=== PATIENT | female | born 1990 | race Caucasian/White ===

== ENCOUNTER 2021-02-24 05:20 | Inpatient (IN) ==
--- NOTE | 2021-02-16 09:24 | Anesthesiology Consultation ---
Date of Service February 16, 2021 Assessment & Plan (1) Encounter for pre-operative examination: COVID screening: Per assessment on 02/16: Travel screen negative, no known COVID- 19 positive contacts or current COVID-19 related symptoms. Surgeon arranging preop COVID testing (scheduled 02/20; [place]). Awaiting results. 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 History Surgery Operation Date: 02/24/21 07:30 Proposed Procedures p Section in LD - Sheila Davis MD, FACOG Height/Weight Height: 5 ft Weight: 75.75 kg Allergies Allergy/AdvReac Type Severity Reaction Status Date / Time No Known Allergies Allergy Verified 02/16/21 08:45 Medications Home Medications Medication Instructions Recorded Confirmed Last Taken prenat.vits,garfield,[id number] 1 tab PO DAILY 07/14/20 02/16/21 01/19/21 Past Medical History Medical History History of COVID-19 10/2020 mild sinus congestion, loss of taste > resolved Past Family History Family History Denies family history of Ovarian cancer Breast cancer Colorectal cancer Past Surgical History Surgical History H/O section [place] teeth extracted Social History Smoking Status: Never smoker Do You Dip or Chew Tobacco: No Hx Alcohol Use: No Hx Substance Use: No substance use type: does not use
--- NOTE | 2021-02-20 13:28 | History & Physical Report ---
Date of Service February 20, 2021 Assessment & Plan (1) Previous delivery affecting , antepartum: (2) Rubella non-immune status, antepartum: (3) Encounter for supervision of normal in multigravida, antepartum: Will admit for planned repeat c/s this saturday. consent reviewed and signed. plan mmr pp. patient and partner aware and deny ?s or concerns. History of Present Illness Chief Complaint: planned c/s Primary Care Provider: Amelia Barnes 30yo with cc of planned c/s after 39wks ega this saturday02/24/21. Patient has pressure symptoms. No regular ctx or leaking or bleeding. FM PNC c/b 1. Prior c/s for breech 2. Rubella non immune, MMR PP PNL Rh pos, R non immune, GBS neg OBH: breech c/s at 39wks. Allergies Allergy/AdvReac Type Severity Reaction Status Date / Time No Known Allergies Allergy Verified 02/20/21 13:07 Home Medications Medication Instructions Recorded Confirmed Type prenat.vits,garfield,[id number]-[id number] 1 tab PO DAILY 07/14/20 02/20/21 History Patient History Medical History History of COVID-19 10/2020 mild sinus congestion, loss of taste > resolved Surgical History H/O section [place] teeth extracted Family History Denies family history of Ovarian cancer Breast cancer Colorectal cancer Social History (Updated 07/14/20 @ 13:45 by Doreen Rebolledo) Smoking Status: Never smoker Second Hand Exposure: No; Hx Alcohol Use: No Hx Substance Use: No Preferred Language: Tongan Communication Ability: Effective 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: No Beliefs That Will Affect Care: None marital status: marital status details: Good (31) [phone] or sister Chantelle Rasmussen [phone] Current Living Situation: Spouse Current Living Situation Comment: lives with spouse and daughter, 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: 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 Feels Safe at Home: Yes Assistive Devices: None Review of Systems as per Subjective / HPI; no fever Physical Exam Constitutional: WD/WN, vitals as above Respiratory: normal respiratory effort, lungs clear to auscultation Cardiovascular: Rate/Rhythm: regular rate and regular rhythm Gastrointestinal (Abdomen): soft gravid nt FHTs 145 Musculoskeletal: no edema nontender calves Neurologic: grossly normal Psychiatric: A+Ox3, euthymic affect Coding Level of Care Code None Diagnoses Previous delivery affecting , antepartum O34.219 Rubella non-immune status, antepartum O99.891; Z28.3 Encounter for supervision of normal in multigravida, antepartum Z34.80
[2021-02-24] MEDS ORDERED: SODIUM CHLORIDE 0.9% 250 ML IV PRN (05:26)
[2021-02-24] MEDS ORDERED: LACTATED RINGER'S 1,000 ML IV SCH ×3 (05:30→10:33)
[2021-02-24] MEDS ORDERED: ceFAZolin 2,000 MG in SYRINGE 0 ML IV SCH (06:00)
[2021-02-24] MEDS ORDERED: CITRIC ACID/SODIUM CITRATE 15 ML UDC PO SCH (06:00)
[2021-02-24 06:05] LABS: Basophils # (auto) 0.03 K/uL (0-0.2); Basophils % (auto) 0.3 %; Eosinophils # (auto) 0.13 K/uL (0-0.5); Eosinophils % (auto) 1.3 %; Hematocrit (blood only) 34.4 % (37-47); Hemoglobin 11.4 g/dL (12.0-16.0); Immature Granulocytes # (auto) 0.07 K/uL (0.00-0.02); Immature Granulocytes % (auto) 0.7 %; Lymphocytes # (auto) 2.66 K/uL (1.2-3.4); Lymphocytes % (auto) 26.2 %; Mean Corpuscular Hemoglobin 29.2 pg (25-34); Mean Corpuscular Hgb Conc 33.1 g/dL (32-36); Mean Corpuscular Volume 88.2 fL (80-100); Mean Platelet Volume 10.1 fL (7.4-10.4); Monocytes # (auto) 0.93 K/uL (0.11-0.59); Monocytes % (auto) 9.2 %; Neutrophils # (auto) 6.34 K/uL (1.4-6.5); Neutrophils % (auto) 62.3 %; Platelet Count 230 K/uL (130-400); RDW Coefficient of Variation 14.1 % (11.5-14.5); RDW Standard Deviation 45.4 fL (36.4-46.3); White Blood Count 10.16 K/uL (4.8-10.8)
--- NOTE | 2021-02-24 07:21 | History & Physical Bridge Note ---
Date of Service February 24, 2021 History & Physical Bridge Note I have examined the patient, reviewed the History & Physical and in the interval since the performance of the History & Physical I have noted the following changes of clinical significance: no changes noted
[2021-02-24] MEDS ORDERED: MoRPHine SULFATE PF 1 MG/ML 10 ML AMP/VIAL INT SPINAL ONE (07:42)
[2021-02-24] MEDS ORDERED: HYDROmorphone INJ 0.5 MG/0.5 ML SYR IV PRN (07:42)
[2021-02-24] MEDS ORDERED: NALOXONE HCL 0.4 MG/1 ML VIAL/CARP IV PRN (07:42)
[2021-02-24] MEDS ORDERED: MEPERIDINE HCL 25 MG/ML CARP/VIAL IV PRN (07:42)
[2021-02-24] MEDS ORDERED: NALOXONE HCL 0.08 MG in SYRINGE 1.8 ML IV PRN (07:42)
[2021-02-24] MEDS ORDERED: ONDANSETRON INJ 2 MG/ML 2 ML VIAL IV PRN (07:42)
[2021-02-24] MEDS ORDERED: PROMETHAZINE HCL 6.25 MG in SODIUM CHLORIDE 0.9% 50 ML IV PRN (07:42)
[2021-02-24] MEDS ORDERED: MoRPHine SULFATE 2 MG/ML CARP IV PRN (07:42)
[2021-02-24] MEDS ORDERED: NALOXONE HCL 1 MG in SODIUM CHLORIDE 0.9% 1000ML 1,000 ML IV PRN (07:42)
[2021-02-24] MEDS ORDERED: ePHEDrine sulfate 50 MG/ML AMP IV PRN (07:42)
[2021-02-24] MEDS ORDERED: LACTATED RINGER'S 500 ML IV PRN (07:42)
[2021-02-24] MEDS ORDERED: KETOROLAC 30 MG/ML VIAL IV PRN (07:42)
[2021-02-24] MEDS ORDERED: NO NARCOTICS OR SEDATIVES SCH (07:45)
[2021-02-24] MEDS ORDERED: DC INTRASPINAL MORPHINE SCH (07:45)
[2021-02-24] MEDS ORDERED: SODIUM CHLORIDE 0.9% 1000ML 1,000 ML IV SCH (07:45)
[2021-02-24] MEDS ORDERED: fentaNYL citrate 100 MCG/2 ML VIAL ONE (07:48)
[2021-02-24] MEDS ORDERED: MoRPHine SULFATE PF 1 MG/ML 10 ML AMP/VIAL ONE (07:48)
[2021-02-24] MEDS ORDERED: OXYTOCIN 10 UNITS/ML VIAL ONE (08:39)
[2021-02-24] MEDS ORDERED: KETOROLAC 30 MG/ML VIAL ONE (08:39)
[2021-02-24] MEDS ORDERED: ONDANSETRON INJ 2 MG/ML 2 ML VIAL ONE (08:39)
--- NOTE | 2021-02-24 08:39 | Post Operative Brief Note ---
PG Immediate Post Op with CF Date of Surgery February 24, 2021 Pre & Post Diagnosis Operation Date: 02/24/21 07:30 Pre-Op Diagnosis: 39 week iup, prior caesarean section, desires repeat Post-Op Diagnosis: Same as pre-op I identified the patient and participated in the time-out.: Yes Procedure Operation Date: 02/24/21 07:30 Actual Procedures p Repeat Low Transverse Section in LD; Live male child at 0809 (Main OR #3)(Bilateral) - Sheila Davis MD, FACOG Surgeon Sheila Davis MD, FACOG Mechanical Artist Liz Estimated Blood Loss 500 Findings Consistent with Post-Op Diagnosis (viable male apgars 8,9 normal uterus, tubes and ovaries bilaterally) Fluids 1500 Specimens Specimen Description: Placenta-hold Cord blood Drains Martinez Catheter (Inserted after spinal anesthesia; draining clear yellow urine throughout entire procedure.) Anesthesia Type Spinal Complications none Disposition Accompanied Patient To Recovery: No Disposition: L&D
[2021-02-24] MEDS ORDERED: MAGNESIUM HYDROXIDE SUSP 30 ML UDC PO PRN (10:33)
[2021-02-24] MEDS ORDERED: BENZOCAINE 20% AER SPR 82.5 GM CAN EXT PRN (10:33)
[2021-02-24] MEDS ORDERED: SENNA 8.6 MG TAB PO PRN (10:33)
[2021-02-24] MEDS ORDERED: DIPHTHERIA/TETANUS/PERTUSSIS 0.5 ML SYR/VIAL IM ONE (10:33)
[2021-02-24] MEDS ORDERED: HYDROCORTISONE ACETATE 25 MG SUPP PR PRN (10:33)
[2021-02-24] MEDS ORDERED: SUPERCREAM 0.870% 15 GM JAR EXT PRN (10:33)
--- NOTE | 2021-02-24 10:58 | Operative Report ---
PG Post Operative Report Pre & Post Diagnosis Operation Date: 02/24/21 07:30 Pre-Op Diagnosis: 1. 39 week iup 2. Prior section, desires repeat section Post-Op Diagnosis: Same as pre-op I identified the patient and participated in the time-out.: Yes Procedure Operation Date: 02/24/21 07:30 Actual Procedures p Repeat Low Transverse Section Surgeon Sheila Davis MD, FACOG Provider Relations Rep Liz Estimated Blood Loss 500 Findings Consistent with Post-Op Diagnosis (viable male apgars 8,9 normal uterus, tubes and ovaries bilaterally) Fluids 1500 Specimens placenta hold cord blood to lab Drains weaver Anesthesia Type Spinal Complications none Disposition Accompanied Patient To Recovery: No Disposition: L&D Indications 30yo at 39wks with cc of planned section for repeat section. Description of Procedure The patient was taken to the operating room and identified. After adequate anesthesia was obtained, she was placed in the supine position with a leftward tilt on the operating table and prepped and draped in the usual sterile fashion. A weaver catheter had already been placed. The knife was used to create a Pfannensteil skin incision that was carried down to the underlying layer of fascia. The fascia was nicked in the midline and this opening was extended laterally using Paulino scissors. Forrest clamps were placed on the superior and inferior aspect of the fascial incision tenting it upward and the underlying rectus muscles were dissected off the overlying fascia both sharply and bluntly using Paulino scissors. The rectus muscles were bluntly in the midline. The peritoneal cavity was bluntly entered into. This opening was stretched. The bladder blade was placed. The vesicouterine peritoneum was elevated and opened up into and the bladder flap was created digitally and bladder blade was replaced. The knife was used to create a hysterotomy and this opening was stretched. The operators hand was placed through the hysterotomy and the bladder blade was removed. The head was elevated and flexed and with fundal pressure the head was delivered. Body cord was noted. The shoulders and body were rapidly delivered. The cord was clamped and cut and the infant's mouth and nares were bulb suction. The infant was handed off to the awaiting pediatricians. Cord blood was obtained. The placenta was manually expressed. The uterus was exteriorized and cleared of all clots and debris. Dilute IV Pitocin was begun. The uterine tone was improving. The hysterotomy was closed in a running interlocking fashion using 0 Vicryl followed by a second imbricating layer of 0 Vicryl. Bleeding sites at midline of hysterotomy were stitched with interrupted sutures of 2-0 vicryl for excellent hemostasis. The hysterotomy was hemostatic. The pelvis was irrigated. The uterus was returned to the abdomen. The gutters were cleared of all clots and debris. The hysterotomy was reinspected and noted to be hemostatic. The fascia was then closed in running fashion using 0 Vicryl. The subcutaneous fat was copiously irrigated and reapproximated using 2-0 chromic. The skin was closed in a subcuticular fashion using 4-0 Vicryl. At this point the procedure was terminated. The patient was transferred to the recovery room in stable condition. All sponge, lap and needle counts are correct x2. I attest to the content of the Intraoperative Record and any orders documented therein. Any exceptions are noted below. OB Procedure charges OB Charges 63614 C/S
[2021-02-24] MEDS: diphenhydrAMINE 50 MG/ML VIAL IV PRN ×2 (11:02→17:02)
--- NOTE | 2021-02-24 15:16 | Anesthesiology Progress Note ---
Date of Service February 24, 2021 Anesthesia Post Procedure Vital Signs Vital Signs: Temp Pulse Pulse Resp BP BP Pulse Ox 02/24/21 14:44 18 100 02/24/21 13:45 18 100 02/24/21 12:45 18 100 02/24/21 11:45 36.6 C 56 L 18 100/66 100 02/24/21 11:30 18 97 02/24/21 11:14 52 L 98 02/24/21 11:10 36.8 C 50 L 20 103/65 02/24/21 11:09 50 L 100 02/24/21 11:07 55 L 91 02/24/21 11:04 68 100 02/24/21 11:02 51 L 93 02/24/21 11:00 55 L 111/56 L 02/24/21 10:59 58 L 100 02/24/21 10:54 65 100 02/24/21 10:50 62 104/66 02/24/21 10:49 52 L 100 02/24/21 10:44 51 L 100 02/24/21 10:40 55 L 98/59 L 02/24/21 10:39 54 L 100 02/24/21 10:34 51 L 100 02/24/21 10:30 52 L 118/69 02/24/21 10:29 57 L 100 02/24/21 10:24 65 100 02/24/21 10:21 53 L 108/61 02/24/21 10:19 55 L 100 02/24/21 10:14 52 L 100 02/24/21 10:10 51 L 115/56 L 02/24/21 10:09 52 L 100 02/24/21 10:04 62 100 02/24/21 09:59 56 L 100 02/24/21 09:54 56 L 100 02/24/21 09:51 60 119/67 02/24/21 09:49 64 100 02/24/21 09:44 53 L 100 02/24/21 09:40 53 L 107/60 02/24/21 09:39 53 L 100 02/24/21 09:34 60 100 02/24/21 09:30 57 L 99/56 L 02/24/21 09:29 60 100 02/24/21 09:26 56 L 103/69 02/24/21 09:24 53 L 100 02/24/21 09:21 144 H 185/101 H 02/24/21 09:19 55 L 99 02/24/21 09:14 64 100 02/24/21 09:10 64 108/52 L 02/24/21 09:09 57 L 100 02/24/21 09:04 58 L 100 02/24/21 09:01 62 104/59 L 02/24/21 08:59 61 100 02/24/21 08:54 58 L 100 02/24/21 08:50 54 L 94/51 L 02/24/21 08:49 69 100 02/24/21 07:00 36.7 C 80 18 107/62 02/24/21 05:32 36.8 C 82 18 119/71 Transfer of Care Handoff Completed per policy Notes Mental Status: alert / awake / arousable Patient Amnestic to Procedure: No Nausea / Vomiting: adequately controlled Pain: adequately controlled Airway Patency, RR, SpO2: stable & adequate BP & HR: stable & adequate Hydration State: stable & adequate Neuraxial Anesthesia: was administered and sensory block resolved Anesthetic Complications: no major complications apparent and Pt Satisfied with anesthetic care
[2021-02-24] MEDS: OXYTOCIN 20 UNITS in LACTATED RINGER'S 1,000 ML IV SCH (15:17)
[2021-02-24] MEDS: SIMETHICONE 80 MG CHEW PO SCH ×3 (15:18→21:14)
[2021-02-24] MEDS: DOCUSATE SODIUM 100 MG CAP PO SCH (21:14)
[2021-02-24] MEDS ORDERED: LACTATED RINGER'S 1,000 ML IV ONE (22:22)
[2021-02-24 22:40] LABS: Hematocrit (blood only) 31.2 % (37-47); Hemoglobin 10.4 g/dL (12.0-16.0)
[2021-02-24 22:58] LABS: BUN Creatinine Ratio 19.3 (10-20); Calcium 7.9 mg/dl (8.5-10.1); Creatinine Clr Calc Pharmacy 123.8 ml/min; Est GFR (African American) 141.4 ml/min; Potassium 3.7 mmol/L (3.5-5.1)
[2021-02-25] MEDS: OXYTOCIN 20 UNITS in LACTATED RINGER'S 1,000 ML IV SCH (00:22)
[2021-02-25] MEDS ORDERED: PROMETHAZINE HCL 25 MG in SODIUM CHLORIDE 0.9% 50 ML IV PRN (01:42)
[2021-02-25] MEDS ORDERED: KETOROLAC 30 MG/ML VIAL IV PRN (01:42)
[2021-02-25] MEDS ORDERED: ONDANSETRON INJ 2 MG/ML 2 ML VIAL IV PRN (01:42)
[2021-02-25] MEDS ORDERED: diphenhydrAMINE Capsule 25 MG CAP PO PRN (01:42)
[2021-02-25] MEDS ORDERED: diphenhydrAMINE 50 MG/ML VIAL IV PRN (01:42)
[2021-02-25] MEDS: IBUPROFEN 600 MG TAB PO PRN ×5 (03:19→22:03)
[2021-02-25] MEDS: oxyCODONE/ACETAMINOPHEN 5mg/325mg TAB PO PRN ×5 (03:19→22:03)
[2021-02-25 07:10] LABS: Basophils # (auto) 0.03 K/uL (0-0.2); Basophils % (auto) 0.3 %; Eosinophils % (auto) 0.9 %; Hematocrit (blood only) 33.7 % (37-47); Hemoglobin 11.2 g/dL (12.0-16.0); Immature Granulocytes # (auto) 0.04 K/uL (0.00-0.02); Immature Granulocytes % (auto) 0.3 %; Lymphocytes # (auto) 1.83 K/uL (1.2-3.4); Lymphocytes % (auto) 15.8 %; Mean Corpuscular Hemoglobin 29.3 pg (25-34); Mean Corpuscular Hgb Conc 33.2 g/dL (32-36); Mean Corpuscular Volume 88.2 fL (80-100); Mean Platelet Volume 9.9 fL (7.4-10.4); Monocytes # (auto) 0.79 K/uL (0.11-0.59); Monocytes % (auto) 6.8 %; Neutrophils # (auto) 8.77 K/uL (1.4-6.5); Neutrophils % (auto) 75.9 %; Platelet Count 210 K/uL (130-400); Red Blood Count 3.82 M/uL (4.2-5.4); White Blood Count 11.56 K/uL (4.8-10.8)
--- NOTE | 2021-02-25 07:47 | Obstetrical Progress Note ---
Date of Service February 25, 2021 Assessment & Plan (1) Encounter for supervision of normal in multigravida, antepartum: POD#1 doing well. Martinez has been removed, adequate urination. Continue ambulating, eating/drinking. Anticipate DC home tomorrow. Pain controlled. Subjective Ambulation: ambulating normally Voiding: no voiding problems Diet Tolerance:: regular diet Lochia:: Moderate Feeding Type:: breast feeding POD#1 doing well Review of Systems All systems reviewed & are unremarkable except as noted in HPI & below Physical Exam Incision CDI, bandage removed Constitutional WD/WN, vitals as above no acute distress Respiratory normal respiratory effort Cardiovascular Rate/Rhythm: regular rate and regular rhythm Gastrointestinal (Abdomen) Inspection/Auscultation: abdomen normal to inspection; abdomen not distended Percussion/Palpation: abdomen soft Genitourinary OB Exam Abdomen: + fundal height Fundus: + firm; not tender Results & Data ([place]) Vital Signs (Past 12 Hours) Vital Signs Temp Pulse Resp BP Pulse Ox 02/25/21 03:20 36.7 C 55 L 18 100/65 96 02/25/21 01:10 18 96 02/25/21 00:25 18 95 02/24/21 23:50 36.7 C 52 L 18 90/55 L 97 02/24/21 23:10 18 96 02/24/21 22:45 16 98 02/24/21 21:45 16 100 02/24/21 20:45 16 100
[2021-02-25] MEDS ORDERED: MEASLES, MUMPS & RUBELLA VIRUS VIAL SQ ONE (08:30)
[2021-02-25] MEDS: FERROUS SULFATE 325 MG TAB PO SCH (08:46)
[2021-02-25] MEDS: DOCUSATE SODIUM 100 MG CAP PO SCH ×2 (08:47→21:09)
[2021-02-25] MEDS: SIMETHICONE 80 MG CHEW PO SCH ×4 (08:47→21:09)
[2021-02-25] MEDS: PRENATAL VITAMIN 1 TAB PO SCH (08:47)
[2021-02-25] MEDS ORDERED: bisacodyL 5 MG TABEC PO SCH (20:00)
[2021-02-26 05:55] LABS: Hematocrit (blood only) 34.9 % (37-47); Hemoglobin 11.4 g/dL (12.0-16.0)
[2021-02-26] MEDS ORDERED: MEASLES, MUMPS & RUBELLA VIRUS VIAL SQ ONE (06:25)
--- NOTE | 2021-02-26 06:25 | Obstetrical Progress Note ---
Date of Service February 26, 2021 Assessment & Plan (1) examination following delivery: doing well. stable for d/c home. instructions reviewed. f/u 6 wk pp check. PAPDMP checked, no issues identified. MMR ordered, give prior to d/c if pt agreeable. Hgb this am noted. Day #:: 2 Subjective Ambulation: ambulating normally Voiding: no voiding problems Diet Tolerance:: regular diet Lochia:: Small Feeding Type:: breast feeding denies issues with pain management. desires d/c home Physical Exam Constitutional WD/WN, vitals as above Respiratory normal respiratory effort, lungs clear to auscultation Cardiovascular Rate/Rhythm: regular rate and regular rhythm Gastrointestinal (Abdomen) Inspection/Auscultation: abdomen normal to inspection and + abdominal surgical incision (c/d/i ) Percussion/Palpation: abdomen soft; abdomen nontender fundus firm 2 cm below umbilicus Musculoskeletal nt calves no edema Neurologic grossly normal Psychiatric A+Ox3, euthymic affect Results & Data ([facility]) Vital Signs (Past 12 Hours) Vital Signs Temp Pulse Resp BP 02/25/21 23:55 97.7 F 60 16 103/69
[2021-02-26] MEDS ORDERED: bisacodyL 10 MG SUPP PR PRN (08:29)
[2021-02-26] MEDS: SIMETHICONE 80 MG CHEW PO SCH (09:04)
[2021-02-26] MEDS: PRENATAL VITAMIN 1 TAB PO SCH (09:04)
[2021-02-26] MEDS: FERROUS SULFATE 325 MG TAB PO SCH (09:05)
[2021-02-26] MEDS: oxyCODONE/ACETAMINOPHEN 5mg/325mg TAB PO PRN (09:05)
[2021-02-26] MEDS: DOCUSATE SODIUM 100 MG CAP PO SCH (09:05)
[2021-02-26] MEDS: IBUPROFEN 600 MG TAB PO PRN (09:05)
--- NOTE | 2021-03-02 09:13 | Discharge Summary ---
Date of Service Day of admission: February 24, 2021 Date of discharge: February 26, 2021 Admission HPI Per Admitting Provider 30yo with cc of planned c/s after 39wks ega this saturday02/24/21. Patient has pressure symptoms. No regular ctx or leaking or bleeding. FM PNC c/b 1. Prior c/s for breech 2. Rubella non immune, MMR PP PNL Rh pos, R non immune, GBS neg OBH: breech c/s at 39wks. Discharge Data Consultations 02/24/21 05:23 Consult Anesthesiology Stat Procedures Performed Operation Date: 02/24/21 07:30 Actual Procedures p Repeat Low Transverse Section in LD; Live male child at 0809 (Main OR #3)(Bilateral) - Sheila Davis MD, [facility] Course (1) Previous delivery affecting , antepartum: The patient underwent the above stated procedure without incident and her postoperative course and recovery was uncomplicated. On her postoperative day #2 she was tolerating a regular diet, voiding spontaneously, ambulating without problem and was using oral meds for adequate pain control. Her postoperative hemoglobin was 11.5. She was given written and verbal discharge instructions and told to followup in office at 6wks. She was given appropriate pain medicine prescriptions. Coding Level of Care Code None Diagnoses Previous delivery affecting , antepartum O34.219
== END 2021-02-26 11:25 | disposition home or self-care (01) | DRG 788 ==
LOC: 4S1 05:20 → EDSTATUS 07:30 → 4S2 12:09
DX: Z86.16 Personal history of COVID-19; Z37.0 Single live birth; Z3A.39 39 weeks gestation of pregnancy; O34.211 Maternal care for low transverse scar from previous cesarean delivery